=== PATIENT | male | born 1945 | race Caucasian/White ===

== ENCOUNTER 2018-05-03 07:00 | Day surgery (SDC) | payer MEDICARE, BC ==
[~2018-05-03 07:00] MED LIST: Lactated Ringers 1,000 ML IV SCH; ceFAZolin 1 GM in Sodium Chloride 0.9% 50 ML IV ONE
[2018-05-03] MEDS ORDERED: ceFAZolin 1 GM Vial ONE (07:38)
[2018-05-03] MEDS ORDERED: ceFAZolin 1 GM in Sodium Chloride 0.9% 50 ML IV SCH (08:00)
[2018-05-03] MEDS ORDERED: ceFAZolin 2 GM in Sodium Chloride 0.9% 100 ML IV SCH (08:00)
[2018-05-03] MEDS ORDERED: Morphine 2 MG/ML Syringe IVPUSH PRN (09:00)
[2018-05-03] MEDS ORDERED: Ondansetron 4 MG/2 ML SDV IVPUSH PRN (09:00)
[2018-05-03] MEDS ORDERED: Acetaminophen/HYDROcodone 325-5 MG Tab PO PRN (09:00)
--- NOTE | 2018-05-03 16:43 | OR ---
DATE OF OPERATION: 05/03/2018 COOKER HELPER: Ashleigh Ashley RN PREOPERATIVE DIAGNOSIS: Umbilical hernia. POSTOPERATIVE DIAGNOSIS: Umbilical hernia. PROCEDURE: Open umbilical hernia repair with mesh. ANESTHESIA: General. ESTIMATED BLOOD LOSS: Minimal. COMPLICATIONS: None. INDICATION FOR THE PROCEDURE: The patient is a 72-year-old male with a known umbilical hernia. He would like it repaired. DESCRIPTION OF PROCEDURE: Informed consent was obtained from the patient. The patient was taken to the operating room and placed on the table in supine position. General anesthesia was administered. The patient did receive preoperative antibiotics. His abdomen was prepped and draped in sterile fashion. The skin to the left of the umbilicus was infiltrated with local anesthetic. Opening incision was carried out with 15 blade in a circum periumbilical fashion to the left of the umbilicus, dissected down through the subcutaneous tissues with electrocautery. The hernia sac was bluntly dissected off the underside of the umbilicus. Once this was freed up, preperitoneal fat was reduced into the abdomen. The patient did have approximately 1 cm umbilical hernia. The preperitoneal fat was bluntly dissected away from the posterior side of the fascia. The subcutaneous fat also cleared away from the hernia site with electrocautery. A small 4.3 cm piece of mesh was chosen. This was advanced through the defect. This was self-expanding mesh. The mesh was then sutured into place with 2-0 Prolene suture x4. This obliterated the defect nicely. The straps of the mesh were then cut. The fascia was then closed with 0 Vicryl suture. Wound was irrigated and dried. No active bleeding was seen. The umbilicus tacked down to the fascia with 2-0 Vicryl. The subcutaneous space was reapproximated with 3-0 Vicryl suture. The deep dermal layer was closed with 3-0 Vicryl suture symptoms. Skin was closed with 4-0 Monocryl in a running subcuticular fashion. At the end of the case, all sponge count, needle count, and instrument counts were correct. The patient tolerated the procedure well, was extubated and brought to recovery room in good condition. SOUMYA/BOZENA /[id number]
== END 2018-05-03 12:45 ==
LOC: LB.SDS 07:00
PROVIDERS: ATTEND Surgery
DX: K42.9 Umbilical hernia without obstruction or gangrene (principal)
CPT/HCPCS: J0690; J7030; J7120

== ENCOUNTER 2019-06-20 07:20 | Day surgery (SDC) | payer MEDICARE, BC ==
[~2019-06-20 07:20] MED LIST changes: -Lactated Ringers 1,000 ML IV SCH; +Metoclopramide 10 MG/2 ML SDV IV PRN; -ceFAZolin 1 GM in Sodium Chloride 0.9% 50 ML IV ONE
[2019-06-20] MEDS: Sodium Chloride 0.9% 1,000 ML IV SCH (07:45)
[2019-06-20] MEDS ORDERED: Propofol 200 MG/20 ML SDV ONE (09:30)
--- NOTE | 2019-06-20 16:23 | OR ---
DATE OF OPERATION: 06/20/2019 SURGEON: William Valenzuela MD PREOPERATIVE DIAGNOSIS: Surveillance colonoscopy. POSTOPERATIVE DIAGNOSIS: Surveillance colonoscopy. PROCEDURE: Colonoscopy with polypectomy x2. ANESTHESIA: MAC. ESTIMATED BLOOD LOSS: Minimal. COMPLICATIONS: None. INDICATION FOR PROCEDURE: The patient is a 73-year-old male who last had a colonoscopy 11 years ago, was found to have polyps at that time. Denies any change in bowel habits since that time. He is here today for surveillance colonoscopy. DESCRIPTION OF PROCEDURE: Informed consent was obtained from the patient. The patient was taken to the operating room and placed on table in left lateral decubitus position. Monitored anesthesia care was administered. Digital rectal exam was performed. He did have some enlarged internal as well as external hemorrhoids. Colonoscope then advanced through the anus, directed towards the cecum. Cecum was reached and identified by appendiceal orifice and ileocecal valve. Colonoscope then slowly withdrawn. He did have severe diverticulosis throughout the colon both large and small. He did have 2 small sessile polyps in the transverse and descending colon. Both of these were removed with snare cautery and retrieved. Both appeared benign. Colonoscope then further withdrawn. No areas of ischemia or inflammation. No AV malformations identified. Colonoscope then fully withdrawn. FINDINGS: Severe diverticulosis throughout the colon and 2 benign-appearing polyps. RECOMMENDATIONS: We will follow up on pathology for the polyps. Otherwise, we would recommend repeat surveillance colonoscopy in 5 years. We would also recommend to avoid constipation and straining due to the diverticulosis. SOUMYA/BOZENA /[id number]
== END 2019-06-20 10:55 | disposition home or self-care (01) ==
LOC: LB.SDS 07:20
PROVIDERS: ATTEND Surgery
DX: Z12.11 Encounter for screening for malignant neoplasm of colon (principal); D12.4 Benign neoplasm of descending colon; K63.5 Polyp of colon; K57.30 Diverticulosis of large intestine without perforation or abscess without bleeding; K64.8 Other hemorrhoids; K64.4 Residual hemorrhoidal skin tags; Z86.010 Personal history of colon polyps
CPT/HCPCS: 45385; 88305; G0121; J2704; J7030

== ENCOUNTER 2021-03-21 12:15 | Emergency (ER) | payer MEDICARE, BC ==
[2021-03-21] MEDS ORDERED: Sodium Chloride 0.9% 10 ML Syringe FLUSH PRN (13:25)
[2021-03-21] MEDS ORDERED: methylPREDNISolone Sodium Succinate 125 MG/2 ML SDV IVPUSH ONE (13:25)
[2021-03-21] MEDS: Albuterol/Ipratropium 3.0-0.5 MG/3 ML Neb Soln NEB SCH ×2 (13:30→14:29)
--- NOTE | 2021-03-21 14:01 | EDM.PDOC ---
ED HPI GENERAL MEDICAL PROBLEM - General Chief Complaint: Respiratory Problem Stated Complaint: SOB Time Seen by Provider: 03/21/21 12:15 Source of Information: Reports: Patient History Limitations: Reports: No Limitations - History of Present Illness INITIAL COMMENTS - FREE TEXT/NARRATIVE: 75-year-old male presents to the ED complaining of shortness of breath. This is been a gradual onset since Monday. Movement and activity increases the shortness of breath rest helps somewhat. Patient describes the sensation as a tightness in his chest. The does not radiate. This is the worst shortness of breath the patient has experienced with his COPD. Other pertinent medical history includes chronic A. fib. Positive for: Cough with productive sputum white/yellow, diaphoresis with shortness of breath, . Patient denies chest pain, loss of consciousness/syncope/near syncope, constipation diarrhea, nausea vomiting, fevers, headaches, difficulty swallowing, trauma, swollen painful joints, blurred vision. Severity: Moderate - Related Data Allergies Allergy/AdvReac Type Severity Reaction Status Date / Time NOHEMI Inhibitors Allergy Cough Verified 06/18/19 08:29 Home Meds: Home Meds Apixaban [Eliquis] 5 mg PO BID 05/03/18 [History] Losartan Potassium 25 mg PO DAILY 05/03/18 [History] Metoprolol Tartrate 50 mg PO BID 05/03/18 [History] Multivit-Min/FA/Lycopen/Lutein [Centrum Silver Men Tablet] 1 each PO DAILY 05/03/18 [History] Potassium Gluconate [Potassium] 99 mg PO DAILY 05/03/18 [History] Albuterol [Ventolin HFA] 4 puff INH ASDIRECTED PRN #1 ea 03/21/21 [Rx] Azithromycin 500 mg PO DAILY #5 tablet 03/21/21 [Rx] Ipratropium [Atrovent HFA] 2 puff INH DAILY #1 ea 03/21/21 [Rx] predniSONE [Prednisone] 40 mg PO DAILY 5 Days #10 tablet 03/21/21 [Rx] Past Medical History Cardiovascular History: Reports: Afib, Hypertension Gastrointestinal History: Reports: PUD Oncologic (Cancer) History: Reports: Other (See Below) Other Oncologic History: skin cancer removal - Infectious Disease History Infectious Disease History: Reports: Chicken Pox, Measles, Mumps, Shingles - Past Surgical History Cardiovascular Surgical History: Reports: None GI Surgical History: Reports: Other (See Below) Other GI Surgeries/Procedures: surgery for PUD Oncologic Surgical History: Reports: None Social & Family History - Family History Family Medical History: No Pertinent Family History Oncologic: Reports: Lung - Caffeine Use Caffeine Use: Reports: Coffee ED ROS GENERAL - Review of Systems Review Of Systems: See Below Constitutional: Reports: Diaphoresis. Denies: Fever, Weakness, Fatigue, Dec reased Appetite HEENT: Reports: No Symptoms Respiratory: Reports: Shortness of Breath, Wheezing, Cough, Sputum. Denies: Hemoptysis Cardiovascular: Reports: Dyspnea on Exertion. Denies: Chest Pain Endocrine: Reports: No Symptoms GI/Abdominal: Reports: No Symptoms. Denies: Black Stool, Bloody Stool, Constipation, Diarrhea, Difficulty Swallowing, Nausea, Vomiting : Reports: No Symptoms Musculoskeletal: Reports: No Symptoms Skin: Reports: No Symptoms Neurological: Reports: No Symptoms Psychiatric: Reports: No Symptoms ED EXAM, GENERAL - Physical Exam Exam: See Below Free Text/Narrative:: 5-year-old male presents the ED found in bay 2. Patient in semi-Fowlers. Airway is open. Breathing is rapid and shallow. Circulation is bounding and tachycardic. Patient is alert and oriented through 3 GCS 4 5 6. Speaking in 2- 3 word sentences. No obvious trauma Exam Limited By: No Limitations General Appearance: Alert, WD/WN, Moderate Distress (Respiratory) Eye Exam: Bilateral Eye: EOMI, PERRL Ears: Normal External Exam, Hearing Grossly Normal Nose: Normal Inspection, Normal Mucosa, No Blood Throat/Mouth: Normal Inspection, Normal Lips, Normal Voice, No Airway Compromise, Other (Uvula and hypopharynx show irritation and erythema) Head: Atraumatic, Normocephalic Neck: Normal Inspection, Non-Tender. No: Lymphadenopathy (R), Lymphadenopathy (L) Respiratory/Chest: Respiratory Distress, Decreased Breath Sounds, Wheezing, Accessory Muscle Use, Other (To treatment clear breath sounds all matta.) Cardiovascular: No Edema, Tachycardia, Irregularly Irregular GI/Abdominal: Soft, Non-Tender, Distended Back Exam: Normal Inspection, Full Range of Motion, NT Extremities: Normal Inspection, Normal Range of Motion, Non-Tender, Normal Capillary Refill, No Pedal Edema Neurological: Alert, Oriented, Normal Cognition Psychiatric: Normal Affect, Normal Mood Skin Exam: Warm, Dry, Intact, Normal Color, No Rash Lymphatic: No Adenopathy #1 Interpretation EKG Date: 03/21/21 (Atrial fibrillation without ectopy, ST depression in V4 V5 V6, this is not a STEMI) Course - Orders/Labs/Meds Orders: Active Orders 24 hr Category Date Time Status EKG Documentation Completion [RC] ASDIRECTED Care 03/21/21 13:24 Ordered RT Aerosol Therapy [RC] ASDIRECTED Care 03/21/21 13:25 Ordered Chest 1V Frontal [CR] Stat Exams 03/21/21 13:23 Ordered BASIC METABOLIC PANEL,BMP [CHEM] Stat Lab 03/21/21 13:23 Ordered LACTIC ACID [CHEM] Stat Lab 03/21/21 13:26 Ordered TROPONIN I [CHEM] Stat Lab 03/21/21 13:23 Ordered UA RFX FLAQUITA AND CULT IF INDIC [URIN] Stat Lab 03/21/21 13:23 Ordered Albuterol/Ipratropium [DuoNeb 3.0-0.5 MG/3 ML] Med 03/21/21 13:30 Ordered 3 ml NEB QIDRT Sodium Chloride 0.9% [Saline Flush] Med 03/21/21 13:25 Ordered 10 ml FLUSH ASDIRECTED PRN Peripheral IV Insertion Adult [OM.PC] Routine Oth 03/21/21 13:25 Ordered Medication Orders Albuterol/Ipratropium (Albuterol/Ipratropium 3.0-0.5 Mg/3 Ml Neb Soln) 3 ml NEB QID KRISHNA Last Admin: 03/21/21 13:30 Dose: 3 ml Documented by: CONWROB Sodium Chloride (Sodium Chloride 0.9% 10 Ml Syringe) 10 ml FLUSH ASDIRECTED PRN PRN Reason: Keep Vein Open Labs: Laboratory Tests 03/21/21 03/21/21 Range/Units 12:30 13:40 WBC 13.3 H D (4.0-11.0) K/uL RBC 4.82 (4.50-6.50) M/uL Hgb 15.4 (13.0-18.0) g/dL Hct 45.8 (40.0-54.0) % MCV 95 (76-96) fL MCH 32.0 (27.0-32.0) pg MCHC 33.6 (31.0-35.0) g/dL RDW 12.5 (11.0-16.0) % Plt Count 202 (150-400) K/uL MPV 9.7 (6.0-10.0) fL Neut % (Auto) 90.9 H (45.0-70.0) % Lymph % (Auto) 2.5 L (20.0-40.0) % [place] % (Auto) 6.5 (3.0-10.0) % Eos % (Auto) 0.0 L (1.0-5.0) % Baso % (Auto) 0.1 (0.0-0.5) % Neut # (Auto) 12.08 H (2.00-7.50) K/uL Lymph # (Auto) 0.33 L (1.50-4.00) K/uL [place] # (Auto) 0.87 H (0.20-0.80) K/uL Eos # (Auto) 0.00 L (0.04-0.40) K/uL Baso # (Auto) 0.01 L (0.02-0.10) K/uL SARS CoV-2 RNA Rapid JADEN Negative Meds: Medications Generic Name Dose Route Start Last Admin Trade Name Freq PRN Reason Stop Dose Admin Albuterol/Ipratropium 3 ml 03/21/21 13:30 03/21/21 13:30 Albuterol/Ipratropium 3.0-0.5 Mg/3 Ml Neb Soln NEB 3 ml QID KRISHNA Administration Sodium Chloride 10 ml 03/21/21 13:25 Sodium Chloride 0.9% 10 Ml Syringe FLUSH ASDIRECTED PRN Keep Vein Open Discontinued Medications Generic Name Dose Route Start Last Admin Trade Name Freq PRN Reason Stop Dose Admin Methylprednisolone Sodium Succinate 125 mg 03/21/21 13:25 03/21/21 13:51 Methylprednisolone Sodium Succinate 125 Mg/2 Ml Sdv IVPUSH 03/21/21 13:26 125 mg ONETIME ONE Administration Departure - Departure Time of Disposition: 15:30 Disposition: Admitted As Inpatient 67 Condition: Good Clinical Impression: COPD exacerbation - Discharge Information *PRESCRIPTION DRUG MONITORING PROGRAM REVIEWED*: No *COPY OF PRESCRIPTION DRUG MONITORING REPORT IN PATIENT MEIR: No Instructions: How to Use a Soft Mist Inhaler, Shortness of Breath, Adult, [id number], Chronic Obstructive Pulmonary Disease, [id number], Steps to Quit Smoking, [id number] - My Orders Last 24 Hours: My Active Orders 03/21/21 13:23 Chest 1V Frontal [CR] Stat BASIC METABOLIC PANEL,BMP [CHEM] Stat TROPONIN I [CHEM] Stat UA RFX FLAQUITA AND CULT IF INDIC [URIN] Stat 03/21/21 13:24 EKG Documentation Completion [RC] ASDIRECTED 03/21/21 13:25 RT Aerosol Therapy [RC] ASDIRECTED Sodium Chloride 0.9% [Saline Flush] 10 ml FLUSH ASDIRECTED PRN Peripheral IV Insertion Adult [OM.PC] Routine 03/21/21 13:26 LACTIC ACID [CHEM] Stat 03/21/21 13:30 Albuterol/Ipratropium [DuoNeb 3.0-0.5 MG/3 ML] 3 ml NEB QIDRT - Assessment/Plan Last 24 Hours: My Active Orders 03/21/21 13:23 Chest 1V Frontal [CR] Stat BASIC METABOLIC PANEL,BMP [CHEM] Stat TROPONIN I [CHEM] Stat UA RFX FLAQUITA AND CULT IF INDIC [URIN] Stat 03/21/21 13:24 EKG Documentation Completion [RC] ASDIRECTED 03/21/21 13:25 RT Aerosol Therapy [RC] ASDIRECTED Sodium Chloride 0.9% [Saline Flush] 10 ml FLUSH ASDIRECTED PRN Peripheral IV Insertion Adult [OM.PC] Routine 03/21/21 13:26 LACTIC ACID [CHEM] Stat 03/21/21 13:30 Albuterol/Ipratropium [DuoNeb 3.0-0.5 MG/3 ML] 3 ml NEB QIDRT Assessment:: 75-year-old male with a history of COPD who presents for evaluation for shortness of breath. Signs and symptoms are consistent with COPD exacerbation. A broad differential was considered including foreign body, COPD, viral induced reactive airway disease, pneumothorax, cardiac equivalent, allergic phenomenon, pneumonia, bronchitis, etc. Chest x-ray found no acute findings in the lungs unremarkable no pleural effusion and no pneumothorax. Patient feels improved after the above interventions here in the ED. There are no signs at this point of any other serious etiology including those mentioned above, especially acute coronary syndrome. I doubt this is ACS given the classic story of a COPD exacerbation given by the patient, the marked wheezing without rales and atrial fibrillation shown on EKG without ST depression or elevation, and a negative troponin. No indication for hospitalization at this time including no hypoxia, no marked increase in respiratory rate after treatment and minimal to no retractions. Supportive outpatient management is therefore indicated. Given the increased sputum production, and leukocytosis antibiotics are indicated at this time. Advised close follow-up with primary care physician and to return if increased wheezing, progressive shortness of breath, develops fever greater than 102. Plan: COPD exacerbation ABC, history, exam, labs, DuoNeb x2, EKG, chest x-ray, Solu-Medrol 125 IM, consultation with Dr. Corbett, patient education/shared decision making regarding treatment course, all patients questions were answered to their satisfaction and they agreed to treatment plan, follow-up with primary care provider patient was discharged in stable condition
[2021-03-21] MEDS ORDERED: Azithromycin 500 MG Tab PO ONE (14:58)
--- NOTE | 2021-03-22 06:47 | CR ---
Date of Service: 03/21/21 Clinical Data: chest pain AP CHEST: NO priors. The patient is in an apical lordotic position. The heart size is normal. There is calcification of the aortic arch. The lungs are clear. No pneumothorax. No pleural effusions. No evidence of acute intrathoracic disease. [id number] [facility]
== END 2021-03-21 15:20 | disposition home or self-care (01) ==
LOC: LB.ED 12:15
DX: J44.1 Chronic obstructive pulmonary disease with (acute) exacerbation (principal); I48.91 Unspecified atrial fibrillation; I10 Essential (primary) hypertension; Z79.899 Other long term (current) drug therapy; Z88.8 Allergy status to other drugs, medicaments and biological substances; Z20.822 Contact with and (suspected) exposure to COVID-19
CPT/HCPCS: 36415; 71045; 80048; 81001; 83605; 84484; 85025; 93005; 96374; 99285; A9270; J2930; U0002; J7620-GY

== ENCOUNTER 2021-07-08 09:42 | Emergency (ER) | payer MEDICARE, BC ==
[2021-07-08] MEDS ORDERED: Acetaminophen/HYDROcodone 325-5 MG Tab PO ONE (10:20)
[2021-07-08] MEDS ORDERED: Acetaminophen/HYDROcodone 325-5 MG Tab ONE (11:00)
== END 2021-07-08 11:20 | disposition home or self-care (01) ==
LOC: LB.ED 09:42
DX: S83.412A Sprain of medial collateral ligament of left knee, initial encounter (principal); I48.91 Unspecified atrial fibrillation; I10 Essential (primary) hypertension; J44.9 Chronic obstructive pulmonary disease, unspecified; Z88.8 Allergy status to other drugs, medicaments and biological substances; Z79.01 Long term (current) use of anticoagulants; Z79.899 Other long term (current) drug therapy; W22.09XA Striking against other stationary object, initial encounter
CPT/HCPCS: 99283; A9270; 99282